=== PATIENT | female | born 1990 ===

== ENCOUNTER → 2020-10-22 | Outpatient (CLI) | payer OTHER | END | disposition home or self-care (01) | LOC: PRENATAL 14:30 | PROVIDERS: ATTEND Obstetrics & Gynecology Maternal & Fetal Medicine | DX: O35.0XX1 Maternal care for (suspected) central nervous system malformation in fetus, fetus 1 (principal); O35.3XX1 Maternal care for (suspected) damage to fetus from viral disease in mother, fetus 1; O98.512 Other viral diseases complicating pregnancy, second trimester; O09.212 Supervision of pregnancy with history of pre-term labor, second trimester; Z36.89 Encounter for other specified antenatal screening; Z3A.20 20 weeks gestation of pregnancy ==

== ENCOUNTER → 2024-04-04 | Outpatient (CLI) | payer OTHER | END | disposition home or self-care (01) | LOC: NST 11:15 | PROVIDERS: ATTEND Obstetrics & Gynecology | DX: Z34.83 Encounter for supervision of other normal pregnancy, third trimester (principal) ==

== ENCOUNTER 2024-05-03 10:58 | Outpatient (CLI) | payer OTHER | END 2024-05-03 11:49 | disposition home or self-care (01) | LOC: NST 10:58 | PROVIDERS: ATTEND Obstetrics & Gynecology Maternal & Fetal Medicine | DX: Z34.83 Encounter for supervision of other normal pregnancy, third trimester (principal) ==

== ENCOUNTER 2024-05-05 13:29 | Inpatient (IN) | payer OTHER ==
[~2024-05-05] VITALS: Ht 160 cm; Wt 68.0 kg
[2024-05-22] VITALS (12 sets, daily range): BP systolic 106–126; BP diastolic 68–82
[2024-05-22] MEDS ORDERED: LEVO-T25 MCG (09:52)
[2024-05-22] MEDS ORDERED: PRENATAL TABLE1 EAC1 (09:52)
[2024-05-22] MEDS ORDERED: RINGERS SOLUTION,LACTATED 1,000 ML IV SCH (10:00)
[2024-05-22] MEDS ORDERED: CHLORHEXIDINE GLUCONATE 120 ML BOTTLE TP SCH (10:15)
[2024-05-22] MEDS ORDERED: OXYTOCIN 1,000 ML IV SCH (10:15)
[2024-05-22] MEDS ORDERED: IBUprofen 400 MG TABLET PO PRN (10:15)
[2024-05-22 10:21] LABS: HEMATOCRIT 38.9 % (36.0-45.00); HEMOGLOBIN 13.4 g/dL (12.0-15.00); MEAN CELL VOLUME 91.9 fL (80.00-100.00); MEAN CORPUSCULAR HEMOGLOBIN 31.6 pg (27.00-32.0); MEAN CORPUSCULAR HGB CONC 34.4 g/dl (32.0-36.0); PLATELET COUNT 273 K/uL (150-450); RED BLOOD COUNT 4.23 M/uL (4.00-6.00); RED CELL DISTRIBUTION WIDTH 12.9 % (11.5-14.5)
[2024-05-22 10:23] LABS: PH,URINE 6.5 (5.0-8.0); URINE APPEARANCE Clear; URINE BILIRRUBIN Negative (NEGATIVE); URINE BLOOD Moderate; URINE COLOR Yellow; URINE GLUCOSE Negative (NEGATIVE); URINE KETONE Negative (NEGATIVE); URINE LEUKOCYTE Small; URINE NITRATE Negative; URINE PROTEIN Negative (NEGATIVE); URINE UROBILINOGEN 0.2 E.U./dl
[2024-05-22 10:41] LABS: INR < 0.93; PARTIAL THROMBOPLASTIN TIME 27.1 SECONDS (22.0-34.0); PROTHROMBIN TIME 9.8 SECONDS (9.0-11.5)
[2024-05-22 10:48] LABS: URINE BACTERIA 1492.9 uL (0.0-1933); URINE EPITHELIAL CELLS 39.1 uL (0.0-38.8); URINE RBC 27.9 uL (0.0-20.8); URINE WBC 107.4 uL (0.0-23.2)
[2024-05-22] MEDS ORDERED: ERYTHROMYCIN BASE OPHT 1GM EACH TUBE OP ONE (11:00)
[2024-05-22 11:40] LABS: ALBUMIN 2.9 gm/dL (3.4-5.0); BILIRUBIN TOTAL 0.26 mg/dL (0.3-1.2); CALCIUM 8.5 mg/dL (8.5-10.1); CREATININE SERUM 0.65 mg/dL (0.55-1.02); GFR 106.31; GLOBULINA 4.2 G/DL (2.4-3.5); POTASSIUM 3.79 mEq/L (3.5-5.1); TOTAL PROTEIN 7.1 gm/dL (6.4-8.2)
[2024-05-23 06:30] LABS: HEMOGLOBIN 11.2 g/dL (12.0-15.00); MEAN CELL VOLUME 91.2 fL (80.00-100.00); PLATELET COUNT 216 K/uL (150-450); RED BLOOD COUNT 3.51 M/uL (4.00-6.00); RED CELL DISTRIBUTION WIDTH 12.9 % (11.5-14.5)
[2024-05-23 08:08] VITALS: BP 108/68
[2024-05-23] MEDS ORDERED: PNV,CALCIUM 72/IRON/FOLIC ACID 1 TAB TABLET PO SCH (09:00)
[2024-05-23 17:39] VITALS: BP 106/73
[2024-05-23 21:31] VITALS: BP 120/76
[2024-05-24] VITALS: BP 121/79
[2024-05-24 04:00] VITALS: BP 113/77
[2024-05-24 08:52] VITALS: BP 122/85
== END 2024-05-24 10:55 | disposition home or self-care (01) | DRG 768 ==
LOC: OB/GYN 05-22 09:27 → LDR 05-22 09:27 → OB/GYN 05-22 10:29 → SURH 05-28 09:33
PROVIDERS: Obstetrics & Gynecology Gynecology; ADMIT Obstetrics & Gynecology; ATTEND Obstetrics & Gynecology
PROC: 10E0XZZ Delivery of Products of Conception, External Approach (ICD-10-PCS; principal; 2024-05-22)
PROC: 0UQJXZZ Repair Clitoris, External Approach (ICD-10-PCS; 2024-05-22)
PROC: 4A1HXCZ Monitoring of Products of Conception, Cardiac Rate, External Approach (ICD-10-PCS; 2024-05-22)
DX: O71.4 Obstetric high vaginal laceration alone (principal); Z37.0 Single live birth; Z3A.39 39 weeks gestation of pregnancy

== ENCOUNTER 2024-05-11 10:37 | Outpatient (CLI) | payer OTHER | END 2024-05-11 11:37 | disposition home or self-care (01) | LOC: NST 10:37 | PROVIDERS: ATTEND Obstetrics & Gynecology Gynecology | DX: Z34.83 Encounter for supervision of other normal pregnancy, third trimester (principal) ==